=== PATIENT | female | born 2000 | race Caucasian/White ===

== ENCOUNTER 2019-03-09 20:22 | Emergency (ER) | payer BC ==
[2019-03-09 20:52] VITALS: BP 124/86; PULSE 94; TEMP 97.7; BMI 21.5
[2019-03-09] MEDS ORDERED: SODIUM PHOSPHATE/NA BIPHOS 133 ML ENEMA PR ONE (21:49)
--- NOTE | 2019-03-09 22:09 | PDOC ---
History of Present Illness - General Chief Complaint: Constipation Stated Complaint: PAIN Time Seen by Provider: 03/09/19 21:47 - History of Present Illness Initial Comments: 03/09/19 22:09 18-year-old female without comorbidities presents for evaluation of 3 days of constipation without systemic symptoms Past History - Past Medical History Allergies/Adverse Reactions: Allergies Allergy/AdvReac Type Severity Reaction Status Date / Time No Known Allergies Allergy Verified 03/09/19 20:52 COPD: No - Immunization History Immunization Up to Date: Yes - Psycho Social/Smoking Cessation Hx Smoking History: Never smoked Have you smoked in the past 12 months: No Information on smoking cessation initiated: No Hx Alcohol Use: No Drug/Substance Use Hx: No Review of Systems - Review of Systems Constitutional: No: Fever ABD/GI: Yes: Constipated *Physical Exam - Vital Signs Last Vital Signs Temp Pulse Resp BP Pulse Ox 97.7 F 94 H 17 124/86 99 03/09/19 20:48 03/09/19 20:48 03/09/19 20:48 03/09/19 20:48 03/09/19 20:48 - Physical Exam 03/09/19 22:09 GENERAL: The patient is awake, alert, and fully oriented, in no acute distress. HEAD: Normal with no signs of trauma. EYES: sclera anicteric, conjunctiva clear. ENT: Ears normal tympanic membranes normal oropharynx clear uvula midline NECK: Normal range of motion LUNGS: Breath sounds equal, clear to auscultation bilaterally. No wheezes, and no crackles. HEART: S1 and S2 without murmur, rub or gallop. ABDOMEN: Soft, nontender, normoactive decreased bowel sounds. No guarding, no rebound. No masses. EXTREMITIES: Normal range of motion, no edema. No clubbing or cyanosis. No cords, erythema, or tenderness. NEUROLOGICAL: Cranial nerves II through XII grossly intact. Normal speech, normal gait. PSYCH: Normal mood, normal affect. SKIN: Warm, Dry, normal turgor, no rashes or lesions noted. ED Treatment Course - Medications Given in the ED: ED Medications Discontinued Medications Generic Name Dose Route Start Last Admin Trade Name Freq PRN Reason Stop Dose Admin Sodium Phosphate 133 ml 03/09/19 21:49 03/09/19 21:59 Fleet Adult Rectal Enema - NH 03/09/19 21:50 133 ml ONCE ONE Administration Medical Decision Making - Medical Decision Making 03/09/19 22:31 Patient relieved after Fleet enema Discharge - Discharge Information Problems reviewed: Yes Clinical Impression/Diagnosis: Acute constipation Condition: Improved Disposition: HOME - Admission No - Follow up/Referral - Patient Discharge Instructions Patient Printed Discharge Instructions: DI for Constipation, Constipation Additional Instructions: Return to the emergency room if your symptoms return other than that follow-up with your primary care physician in 2 to 3 days without fail for further evaluation and treatment options. High-fiber diet and fiber supplementation will help you with your constipation in the future. - Post Discharge Activity
== END 2019-03-09 22:34 | disposition home or self-care (01) ==
LOC: JERFT 20:22
DX: K59.00 Constipation, unspecified (principal)
CPT/HCPCS: 99282-25